=== PATIENT | female | born 1965 | race Caucasian/White ===

== ENCOUNTER 2018-03-06 13:11 | Emergency (ER) | payer MEDICAID ==
[~2018-03-06] VITALS: Ht 152.4 cm; Wt 54.2 kg
[2018-03-06] MEDS ORDERED: azithromycin 250mg tablet PO ONE (13:45)
--- NOTE | 2018-03-06 13:52 | NUR ---
patient to cxr
[2018-03-06 13:54] VITALS: BP 134/89
--- NOTE | 2018-03-06 13:55 | NUR ---
[facility] director: dr cynthia wright: vandana navarro hf/pulmologist:[facility]: dr burnette explosive operator fuse: dr nora islas in [place]
[2018-03-06] MEDS ORDERED: AZIT-63 PO (14:05)
== END 2018-03-06 14:15 | disposition home or self-care (01) ==
LOC: ER 13:12
DX: J20.9 Acute bronchitis, unspecified (principal); I27.20 Pulmonary hypertension, unspecified; Z79.2 Long term (current) use of antibiotics
CPT/HCPCS: 71046; 99283

== ENCOUNTER 2019-09-15 08:47 | Outpatient (CLI) | payer MEDICARE, MEDICAID | END 2019-09-15 23:59 | disposition home or self-care (01) | LOC: 64 CT 08:47 | PROVIDERS: ATTEND Internal Medicine Critical Care Medicine | DX: R91.1 Solitary pulmonary nodule (principal); R91.8 Other nonspecific abnormal finding of lung field | CPT/HCPCS: 71250 ==

== ENCOUNTER 2021-11-23 10:12 | Emergency (ER) | payer MEDICARE, MEDICAID ==
[~2021-11-23] VITALS: Ht 152.4 cm; Wt 53.6 kg
--- NOTE | 2021-11-23 10:23 | NUR ---
spoke to nahed perez rn and dr. foster. Dr. Foster aware of [facility] pt. Consuelo stable. Pt waiting for a room.
[2021-11-23] MEDS ORDERED: acetaminophen 325mg tablet PO ONE ×3 (11:35→16:35)
[2021-11-23] MEDS ORDERED: ondansetron 4mg rapidly disintigrating tab PO ONE (11:35)
--- NOTE | 2021-11-23 11:37 | NUR ---
TRIED TO GET IV ACCESS ON PT UNSUCESSFULL,VERBAL ORDERS RECIEVED FROM DR DE LA TORRE TO GIVE ZOFRAN ODT 4 MG FOR NAUSEA ONCE,TYLENOL 650 MG PO ONCE FOR PAIN,ATIVIAN 0.5 MG PO ONCE FOR ANXIETY. SBAR TO BRIAN TANNER BREAKING THE PRIMARY RN {NAKUL}
[2021-11-23] MEDS ORDERED: LORazepam 0.5 MG tablet PO ONE ×3 (11:40→18:10)
[2021-11-23] MEDS ORDERED: fentaNYL/PF 50MCG/1 ML 2ML syringe IV ONE (12:25)
[2021-11-23] MEDS ORDERED: ketorolac trometh. 30mg/ml inj. IV ONE (12:30)
[2021-11-23] MEDS ORDERED: ondansetron/PF 4mg/2ml inj IV ONE ×2 (12:35→17:00)
[2021-11-23 12:54] LABS: BASOPHILS % (AUTO) 0.1 % (0-1); EOSINOPHILS % (AUTO) 0 % (0-6); HEMATOCRIT 44.1 % (35.0-45.0); HEMOGLOBIN 15.1 g/dl (12.0-16.0); LYMPHOCYTES # (AUTO) 0.6 X10'3 (1.1-4.8); MEAN CORPUSCULAR HEMOGLOBIN 32.8 PG (27.0-31.0); MEAN CORPUSCULAR HGB CONC 34.2 g/dL (33.0-36.5); MEAN CORPUSCULAR VOLUME 95.7 FL (78-98); MEAN PLATELET VOLUME 9.1 FL (7.4-10.4); MONOCYTES # (AUTO) 0.3 X10'3 (0-0.9); MONOCYTES % (AUTO) 2.3 % (2-12); NEUTROPHILS # (AUTO) 10.6 X10'3 (1.8-7.7); NEUTROPHILS % (AUTO) 92.6 % (42-75); PLATELET COUNT 161 X10'3 (140-440); RED CELL DISTRIBUTION WIDTH 12.8 % (11.5-14.5); WHITE BLOOD COUNT 11.4 X10'3 (4.5-11.0)
[2021-11-23 13:08] LABS: ALANINE AMINOTRANSFERASE 26 U/L (12-78); ALBUMIN 4.2 G/DL (3.4-5.0); ALBUMIN/GLOBULIN RATIO 1.2 (1.1-1.5); ALKALINE PHOSPHATASE 75 IU/L (46-116); ANION GAP 10 (8-16); ASPARTATE AMINO TRANSFERASE 14 U/L (10-37); BILIRUBIN,TOTAL 0.3 MG/DL (0.1-1.0); BLOOD UREA NITROGEN 24 MG/DL (7-18); BUN/CREATININE RATIO 34.3 (6.6-38.0); CALCIUM 9.5 MG/DL (8.5-10.1); CHLORIDE 103 MMOL/L (99-107); GLUCOSE 124 MG/DL (70-104); LIPASE 147 U/L (73-393); POTASSIUM 4.1 MMOL/L (3.5-5.1); SODIUM 141 MMOL/L (135-145); TOTAL CARBON DIOXIDE 28.2 MMOL/L (24-32); TOTAL PROTEIN 7.8 G/DL (6.4-8.2); eGFR 87 ML/MIN
[2021-11-23] MEDS ORDERED: ringers solution, lactated 1000ml IV soln IV ONE (13:40)
[2021-11-23] MEDS ORDERED: metoclopramide 5 mg/ml inj IV ONE (14:40)
[2021-11-23] MEDS ORDERED: ONDA4TAB12 PO (17:02)
[2021-11-23] MEDS ORDERED: LORazepam 1 MG tablet PO ONE (18:00)
[2021-11-23 18:32] VITALS: BP 131/89
== END 2021-11-23 18:34 | disposition home or self-care (01) ==
LOC: ER 10:13
DX: R11.2 Nausea with vomiting, unspecified (principal); R19.7 Diarrhea, unspecified; I27.20 Pulmonary hypertension, unspecified; Z79.899 Other long term (current) drug therapy
CPT/HCPCS: 36415; 80053; 83690; 85025; 96361; 96374; 96375; 96376; 99284; J2405; J2765; J3490; J7120